=== PATIENT | female | born 1960 | race Caucasian/White ===

== ENCOUNTER 2018-01-10 10:01 | Emergency (ER) | payer MEDICAID ==
[~2018-01-10] VITALS: Ht 157.5 cm; Wt 109.1 kg
[~2018-01-10 10:01] MED LIST: IBUP-2070 PO; METF500T4 PO; METO50 PO
[2018-01-10 10:45] LABS: BASOPHILS % (AUTO) 0.3 % (0.0-2.0); EOSINOPHILS % (AUTO) 0.5 % (1.0-6.0); HEMATOCRIT 37.5 % (36-46); HEMOGLOBIN 12.4 g/dL (12.0-16.0); LYMPHOCYTES # (AUTO) 0.8 K/uL (1.0-4.8); LYMPHOCYTES % (AUTO) 10.2 % (22.0-44.0); MEAN CORPUSCULAR HEMOGLOBIN 27.2 pg (26.0-34.0); MEAN CORPUSCULAR HGB CONC 33.2 G/dL (31.0-37.0); MEAN CORPUSCULAR VOLUME 82 fL (80-100); MONOCYTES # (AUTO) 0.5 K/uL (0.1-1.0); MONOCYTES % (AUTO) 6.9 % (2.0-9.0); NEUTROPHILS # (AUTO) 6.4 K/uL (1.8-7.7); NEUTROPHILS % (AUTO) 82.1 % (40.0-70.0); PLATELET COUNT (AUTO) 278 K/uL (150-450); RED BLOOD CELL COUNT(AUTO) 4.58 MIL/uL (4.00-5.20); RED CELL DISTRIBUTION WIDTH 17.5 % (11.5-14.5)
[2018-01-10 11:03] LABS: CALCIUM, TOTAL 9.1 mg/dL (8.8-10.5); CREATININE 2.02 mg/dL (0.60-1.30); POTASSIUM 4.1 mmol/L (3.5-5.1)
[2018-01-10 11:09] LABS: ALBUMIN 3.2 g/dL (3.4-5.0); BILIRUBIN,TOTAL 0.7 mg/dL (0.1-1.0); TOTAL PROTEIN, SERUM 7.8 g/dL (6.4-8.2)
[2018-01-10] MEDS ORDERED: SODIUM CHLORIDE 0.9% 1,000 ML IV ONE (11:30)
[2018-01-10 11:45] LABS: INFLUENZA TYPE A NEGATIVE FOR TYPE A (NEGATIVE); INFLUENZA TYPE B NEGATIVE FOR TYPE B (NEGATIVE)
[2018-01-10 14:15] LABS: ALBUMIN 2.7 g/dL (3.4-5.0); BILIRUBIN,TOTAL 0.5 mg/dL (0.1-1.0); CALCIUM, TOTAL 8.5 mg/dL (8.8-10.5); CREATININE 1.78 mg/dL (0.60-1.30); TOTAL PROTEIN, SERUM 6.9 g/dL (6.4-8.2)
[2018-01-10 14:44] VITALS: BP 126/70
== END 2018-01-10 14:45 | disposition home or self-care (01) ==
LOC: EMS 10:03
DX: N28.9 Disorder of kidney and ureter, unspecified (principal); E11.9 Type 2 diabetes mellitus without complications; E78.00 Pure hypercholesterolemia, unspecified; I10 Essential (primary) hypertension; Z88.0 Allergy status to penicillin
CPT/HCPCS: 36415; 80053; 82962; 83690; 85025; 87804; 96360; 96361; 99285; J7030